=== PATIENT | female | born 1995 | race Caucasian/White ===

== ENCOUNTER → 2017-09-25 | Emergency (ER) | payer OTHER ==
[~2017-09-25] VITALS: Ht 165.1 cm; Wt 112.5 kg
== END | disposition home or self-care (01) ==
LOC: ER 15:40
DX: J11.1 Influenza due to unidentified influenza virus with other respiratory manifestations (principal); J06.9 Acute upper respiratory infection, unspecified

== ENCOUNTER 2019-06-25 13:47 | Emergency (ER) | payer OTHER ==
[~2019-06-25] VITALS: Ht 162.6 cm; Wt 117.9 kg
== END 2019-06-25 19:20 | disposition home or self-care (01) ==
LOC: ER 13:47
DX: J45.998 Other asthma (principal)

== ENCOUNTER 2020-09-14 13:09 | Emergency (ER) | payer OTHER ==
[~2020-09-14] VITALS: Ht 165.1 cm; Wt 117.9 kg
[2020-09-14] MEDS ORDERED: ORPHENADRINE C100 MG PO (17:28)
[2020-09-14] MEDS ORDERED: KETO10TA2 PO (17:28)
== END 2020-09-14 17:39 | disposition home or self-care (01) ==
LOC: ER 13:09
DX: M41.86 Other forms of scoliosis, lumbar region (principal); M54.5 Low back pain

== ENCOUNTER 2022-11-13 10:54 | Emergency (ER) | payer OTHER ==
[~2022-11-13] VITALS: Ht 162.6 cm; Wt 108.9 kg
[~2022-11-13 10:54] MED LIST: KETO10TA2 PO; ORPHENADRINE C100 MG PO
[2022-11-13] MEDS ORDERED: GLUMETZA500 MG PO (11:17)
== END 2022-11-13 15:39 | disposition home or self-care (01) ==
LOC: ER 10:54
DX: M25.50 Pain in unspecified joint (principal); Z91.013 Allergy to seafood; Z91.041 Radiographic dye allergy status; Z91.018 Allergy to other foods

== ENCOUNTER 2024-02-14 07:40 | Emergency (ER) | payer OTHER ==
[~2024-02-14] VITALS: Ht 157.5 cm; Wt 99.8 kg
[~2024-02-14 07:40] MED LIST changes: +GLUMETZA500 MG PO
[2024-02-14] MEDS ORDERED: ORPHENADRINE CITRATE 30 MG/ML AMPUL IM STA (08:56)
[2024-02-14] MEDS ORDERED: KETOROLAC TROMETHAMINE 60 MG VIAL IM STA (08:56)
[2024-02-14] MEDS ORDERED: KETOROLAC TROMETHAMINE 60 MG VIAL IM ONE (09:10)
[2024-02-14] MEDS ORDERED: ORPHENADRINE CITRATE 30 MG/ML AMPUL ONE (09:10)
== END 2024-02-14 10:28 | disposition home or self-care (01) ==
LOC: ER 07:41
DX: G44.209 Tension-type headache, unspecified, not intractable (principal); M62.838 Other muscle spasm; Z87.09 Personal history of other diseases of the respiratory system; Z91.013 Allergy to seafood; Z88.8 Allergy status to other drugs, medicaments and biological substances; Z91.018 Allergy to other foods; E11.9 Type 2 diabetes mellitus without complications; Z79.84 Long term (current) use of oral hypoglycemic drugs

== ENCOUNTER → 2024-10-19 | Emergency (ER) | payer OTHER ==
[~2024-10-19] VITALS: Ht 160 cm; Wt 104.3 kg
[~2024-10-19] MED LIST changes: +GUAIFENESIN 200 MG/10 ML BLIST.PACK PO ONE
[2024-10-19 09:55] VITALS: BP 127/80; O2SAT 100
== END | disposition left against medical advice (07) ==
LOC: ER 09:11
DX: R05.9 Cough, unspecified (principal); Z91.013 Allergy to seafood; Z88.8 Allergy status to other drugs, medicaments and biological substances; Z91.018 Allergy to other foods; Z87.09 Personal history of other diseases of the respiratory system

== ENCOUNTER 2025-02-05 10:46 | Emergency (ER) | payer OTHER ==
[~2025-02-05] VITALS: Ht 162.6 cm; Wt 108.9 kg
[~2025-02-05 10:46] MED LIST changes: -GUAIFENESIN 200 MG/10 ML BLIST.PACK PO ONE
[2025-02-05] MEDS ORDERED: KETOROLAC TROMETHAMINE 30 MG VIAL IM STA (12:08)
== END 2025-02-05 13:35 | disposition home or self-care (01) ==
LOC: ER 10:52
DX: M25.572 Pain in left ankle and joints of left foot (principal); Z91.013 Allergy to seafood; Z91.018 Allergy to other foods